=== PATIENT | male | born 2000 | race American Indian/Alaskan Native ===

== ENCOUNTER 2020-05-20 12:54 | Emergency (ER) | payer SELFPAY | END 2020-05-20 13:01 | disposition left against medical advice (07) | LOC: ED 12:54 | DX: A64 Unspecified sexually transmitted disease (principal); Z53.21 Procedure and treatment not carried out due to patient leaving prior to being seen by health care provider ==

== ENCOUNTER 2020-05-20 21:55 | Emergency (ER) | payer SELFPAY ==
--- NOTE | 2020-05-21 02:31 | Emergency Department Report ---
[facility] Chief Complaint: Eye Problems Stated Complaint: EYE IRRITATION Time Seen by Provider: 05/21/20 02:27 Duration: 2 Days Side: Bilateral Symptoms: Yes Eye Itching, Yes Eye Redness, Yes Mucous Drainage, Yes Blurred Vi mark (Intermittently), No Eye Pain, No Preceding URI, No H/O Allergic Rhinitis, No Contact Lens Use, No Trauma, No Fever, No Headache Other History: The patient was evaluated in the emergency department for symptoms described in the history of present illness. He/she was evaluated in the context of the global COVID-19 pandemic, which necessitated consideration that the patient might be at risk for infection with the virus that causes COVID-19. Institutional protocols and algorithms that pertain to the evaluation of patients at risk for COVID-19 are in a state of rapid change based on information released by regulatory bodies including the CDC and federal and state organizations. These policies and algorithms were followed during the patient's care in the emergency department. Please note that these policies, procedures and recommendations changed on a rapid basis. 20-year-old - [place] male presents to the emergency room for complaint of bilateral eye redness and watery eyes x2 days. Patient reports that in the morning he has had matted eyelashes and difficulty opening them. Patient denies any pain but states that they are irritated and itch. Patient denies any trauma to his face or eyes. Patient does not wear contacts and intermittent blurred vision when his eyes get to watery. Patient denies any fever chills no nausea no vomiting no sneezing or runny nose. ED Review of Systems ROS: Stated complaint: EYE IRRITATION Other details as noted in HPI Comment: All other systems reviewed and negative ED Past Medical Hx - Past Medical History Previous Medical History?: Yes Hx Asthma: Yes - Surgical History Past Surgical History?: No - Social History Smoking Status: Current Every Day Smoker Substance Use Type: None - Medications Home Medications: Home Medications Medication Instructions Recorded Confirmed Last Taken Type Erythromycin [Erythromycin Ophth 1 strip OU QID 10 Days #2 tube 05/21/20 Unknown Rx Oint] Ketotifen Fumarate [Zaditor] 1 drop OP QDAY #1 bottle 05/21/20 Unknown Rx [facility] Exam - Exam General: Vital signs noted. No distress. Alert and acting appropriately. Eye Exam: Both Injection, Both EOMI, Neither Eye Foreign Body, Neither Lid Foreign Body, Neither Mucous Discharge, Neither Corneal Edema, Neither Photophobia HEENT: No Nasal Congestion, No Pharyngeal Erythema Remainder of HEENT: Normal Lungs: No Use of Accessory Muscles ED Medical Decision Making - Medical Decision Making 20-year-old -[place] male presents to the emergency room for complaint of bilateral eye redness and watery eyes x2 days. Patient reports that in the morning he has had matted eyelashes and difficulty opening them. Patient denies any pain but states that they are irritated and itch. Patient denies any trauma to his face or eyes. Patient does not wear contacts and intermittent blurred vision when his eyes get to watery. Patient denies any fever chills no nausea no vomiting no sneezing or runny nose. Patient appears to have conjunctivitis bilaterally. Patient's vision checked by this provider was 20/20 in both eyes. Patient be discharged home on erythromycin ophthalmic ointment take 4 times a day for 10 days and Zaditor mast cell stabilizer 1 drop daily. Patient was given resources for STD evaluation. As patient reports his girlfriend tested +3 weeks ago for chlamydia. Patient denies any penile discharge no dysuria. Critical care attestation.: If time is entered above; I have spent that time in minutes in the direct care of this critically ill patient, excluding procedure time. ED Disposition Clinical Impression: Conjunctivitis Qualifiers: Conjunctivitis type: unspecified Laterality: bilateral Qualified Code(s): H10.9 - Unspecified conjunctivitis Disposition: DC-01 TO HOME OR SELFCARE Is pt being admited?: No Does the pt Need Aspirin: No Condition: Stable Instructions: Conjunctivitis (ED) Additional Instructions: Please use medications as prescribed. Be sure to wash your hands before and after administering medications. Do not share your medication with anyone. Follow-up at the health department for STD evaluation and treatment. Prescriptions: Erythromycin [Erythromycin Ophth Oint] 1 strip OU QID 10 Days #2 tube Ketotifen Fumarate [Zaditor] 1 drop OP QDAY #1 bottle Referrals: PRIMARY CARE, [Primary Care Provider] - 3-5 Days [facility] Depart [Outside] - 3-5 Days [facility] [Other] - 3-5 Days (Hours or 9-5 Thursday through Thursday) Forms: Work/School Release Form(ED)
== END 2020-05-21 02:42 | disposition home or self-care (01) ==
LOC: ED 21:55
DX: H10.33 Unspecified acute conjunctivitis, bilateral (principal); J45.909 Unspecified asthma, uncomplicated; F17.200 Nicotine dependence, unspecified, uncomplicated; Z79.899 Other long term (current) drug therapy
CPT/HCPCS: 99283